=== PATIENT | female | born 1955 | race Caucasian/White ===

== ENCOUNTER → 2018-04-18 13:43 | Outpatient (CLI) | payer OTHER, SELFPAY ==
--- NOTE | 2018-04-18 | DI.US.S_ITS ---
PROCEDURE: US BREAST RT LIMITED COMPARISON: None. INDICATIONS: RIGHT BREAST PAIN FINDINGS: IMPRESSION: Dictated by: Radha Lee M.D. on 04/18/2018 at 14:54 Approved by: Radha Lee M.D. on 04/18/2018 at 14:55
--- NOTE | 2018-04-18 | DI.MG.S_ITS ---
BILATERAL DIGITAL DIAGNOSTIC MAMMOGRAM 3D/2D: 04/18/2018 CLINICAL: Right breast pain. Comparison is made to exams dated: 02/20/2017 mammogram, 01/27/2016 mammogram, and 12/24/2014 mammogram - [facility]. The tissue of both breasts is heterogeneously dense. This may lower the sensitivity of mammography. No significant masses, calcifications, or other findings are seen in either breast. IMPRESSION: INCOMPLETE: NEEDS ADDITIONAL IMAGING EVALUATION There is no mammographic abnormality seen in the right breast to correspond with the pain, however, targeted ultrasound of the right breast is recommended and will be performed immediately following this exam. This exam was interpreted at Station ID: [id number]. NOTE: For mammograms, a report in lay terms will be sent to the patient. Approximately 15% of breast malignancies will not be visualized mammographically. In the management of a palpable breast mass, a negative mammogram must not discourage biopsy of a clinically suspicious lesion. Electronically Signed By: Radha Lee M.D. lk/:04/18/2018 14:19:00 letter sent: Additional Imaging Needed ACR BI-RADS Category 0: Incomplete 3340F
== END ==
PROVIDERS: PCP Family Medicine; Visit Provider Nurse Practitioner Family
DX: R92.1 Mammographic calcification found on diagnostic imaging of breast (principal); N64.4 Mastodynia
CPT/HCPCS: 76642; 77066; G0279

== ENCOUNTER → 2020-02-18 15:26 | Outpatient (CLI) | payer MEDICARE, SELFPAY ==
--- NOTE | 2020-02-18 | DI.MRI.S_ITS ---
PROCEDURE: MR LUMBAR SPINE WO CON INDICATIONS: Lumbago with sciatica, left side TECHNIQUE: Noncontrast sagittal T1 spin echo and T2 fast echo, sagittal STIR, axial T1 and T2 fast spin echo through the lumbar spine. In cases with scoliosis, additional coronal T2 fast spin echo may be performed. COMPARISON: [facility], , L-SPINE WITHOUT CONTRAST, 08/21/2009, 13:11. FINDINGS: Image quality: Excellent. Alignment and Curvature: There is 57? levoscoliosis centered at L1-2. Findings are similar in extent to the study dated August 21, 2009. Bone Marrow: Marrow has a heterogeneous appearance suggesting some fatty replacement of the marrow. No acute vertebral body compression fractures. Spinal Cord: Conus medullaris terminates at the T12 level. Visualized cord demonstrates normal signal and size. Paraspinous Soft Tissues: No paravertebral masses. L1-L2: Right-sided intervertebral disc space narrowing with preservation of the left aspect of the intervertebral disc. Findings are unchanged from 30/12. No canal stenosis. No neural foraminal stenosis. L2-L3: Overall preservation of disc height. There is a small posterior focal high-intensity zone which is new when compared with the prior study. Mild bilateral neural foraminal stenosis. 4 mm left perineural cyst redemonstrated, unchanged. L3-L4: Intervertebral disc height is preserved. Broad-based disc bulge. No canal stenosis. Moderate facet and ligamentum flavum hypertrophy. Moderate left and mild right neural foraminal stenosis. Findings are similar to the prior study. L4-L5: Intervertebral disc height is preserved. No canal stenosis. Moderate facet and ligamentum flavum hypertrophy. Mild right and moderate left neural foraminal stenosis. The degree of left neural foraminal narrowing is increased when compared with the prior study. L5-S1: Disc height is preserved. No canal stenosis. Moderate facet and ligamentum flavum hypertrophy. Mild bilateral foraminal narrowing. Findings are unchanged. IMPRESSION: 1. Overall similar findings when compared with the prior MRI dated August 21, 2009, including severe scoliotic deformity. 2. 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 3. Increased L4-5 foraminal stenosis, now moderate in degree. Dictated by: Radha Lee M.D. on 02/19/2020 at 9:42 Approved by: Radha Lee M.D. on 02/19/2020 at 9:54
== END ==
PROVIDERS: PCP Family Medicine; Referring Provider Family Medicine; Visit Provider Family Medicine
DX: M54.42 Lumbago with sciatica, left side (principal); M41.115 Juvenile idiopathic scoliosis, thoracolumbar region; G89.29 Other chronic pain; M48.061 Spinal stenosis, lumbar region without neurogenic claudication
CPT/HCPCS: 72148

== ENCOUNTER → 2021-04-12 11:56 | Outpatient (CLI) | payer MEDICARE, SELFPAY ==
--- NOTE | 2021-04-12 | DI.MG.S_ITS ---
BILATERAL DIGITAL SCREENING MAMMOGRAM 3D/2D WITH CAD: 04/12/2021 CLINICAL: Routine screening. Family history of breast cancer. Comparison is made to exams dated: 04/18/2018 mammogram, 02/20/2017 mammogram, and 01/27/2016 mammogram - [facility]. The tissue of both breasts is heterogeneously dense. This may lower the sensitivity of mammography. Current study was also evaluated with a Computer Aided Detection (CAD) system. No significant masses, calcifications, or other findings are seen in either breast. There has been no significant interval change. IMPRESSION: NEGATIVE There is no mammographic evidence of malignancy. A 1 year screening mammogram is recommended. This exam was interpreted at Station ID: [id number]. NOTE: For mammograms, a report in lay terms will be sent to the patient. Approximately 15% of breast malignancies will not be visualized mammographically. In the management of a palpable breast mass, a negative mammogram must not discourage biopsy of a clinically suspicious lesion. Electronically Signed By: Marshall price/kar:04/12/2021 12:34:35 letter sent: Normal Exam ACR BI-RADS Category 1: Negative 3341F
== END ==
PROVIDERS: PCP Family Medicine; Referring Provider Family Medicine; Visit Provider Family Medicine
DX: Z12.31 Encounter for screening mammogram for malignant neoplasm of breast (principal); Z80.3 Family history of malignant neoplasm of breast
CPT/HCPCS: 77063; 77067

== ENCOUNTER → 2022-05-09 12:50 | Outpatient (CLI) | payer MEDICARE, SELFPAY ==
--- NOTE | 2022-05-09 | DI.MG.S_ITS ---
BILATERAL DIGITAL SCREENING MAMMOGRAM 3D/2D WITH CAD: 05/09/2022 CLINICAL: Routine screening. Family history of breast cancer. Comparison is made to exams dated: 04/12/2021 mammogram, 04/18/2018 mammogram, and 02/20/2017 mammogram - [facility]. Both breasts are heterogeneously dense, which may obscure small masses (category c / 51-75% glandular tissue). Current study was also evaluated with a Computer Aided Detection (CAD) system. No significant masses, calcifications, or other findings are seen in either breast. There has been no significant interval change. IMPRESSION: NEGATIVE There is no mammographic evidence of malignancy. A 1 year screening mammogram is recommended. Based on the Tyrer Cuzick model (a risk assessment model) the patient's lifetime risk is 9.3% and her 10 year risk is 5.2%. According to the ACR, ACS, and NCCN guidelines, an annual breast MRI exam along with mammogram is recommended if the patient's lifetime risk is 20% or greater. This exam was interpreted at Station ID: [id number]. NOTE: For mammograms, a report in lay terms will be sent to the patient. Approximately 15% of breast malignancies will not be visualized mammographically. In the management of a palpable breast mass, a negative mammogram must not discourage biopsy of a clinically suspicious lesion. Electronically Signed By: Marshall price/kar:05/09/2022 13:54:30 letter sent: Normal Exam ACR BI-RADS Category 1: Negative 3341F
== END ==
PROVIDERS: PCP Family Medicine; Referring Provider Family Medicine; Visit Provider Family Medicine
DX: Z12.31 Encounter for screening mammogram for malignant neoplasm of breast (principal); Z80.3 Family history of malignant neoplasm of breast
CPT/HCPCS: 77063; 77067

== ENCOUNTER → 2023-02-16 12:35 | Outpatient (CLI) | payer MEDICARE, SELFPAY ==
--- NOTE | 2023-02-16 | DI.RAD.S_ITS ---
Bone Density Report Name: JANAE PALUMBO Age: 67 Sex: Female Ethnicity: White Date of : 1955 Indication: osteopenia; Referring Provider: VIKKI MADDEN Study: Bone densitometry was performed. Exam Date: February 16, 2023 Accession number: [id number] Bone Density: Region BMD T-score Z-score Classification Femoral Neck (Left) 0.539 -2.8 -1.0 Osteoporosis Total Hip (Left) 0.652 -2.4 -0.9 Osteopenia Femoral Neck (Right) 0.567 -2.5 -0.8 Osteoporosis Total Hip (Right) 0.698 -2.0 -0.5 Osteopenia Total Hip Mean 0.675 -2.2 -0.7 Osteopenia Total Forearm (Left) 0.537 -0.8 1.2 Normal 1/3 Forearm (Left) 0.648 -0.8 1.3 Normal UD Forearm (Left) 0.424 -0.3 1.1 Normal World Health Organization criteria for BMD impression classify patients as: Normal (T-score at or above -1.0), Osteopenia (T-score between -1.0 and -2.5), or Osteoporosis (T-score at or below -2.5). 10-year Fracture Risk: FRAX not reported because: Some T-score for Spine Total or Hip Total or Femoral Neck at or below -2.5 Previous Exams: -- Region Exam Age BMD T-score BMD Change BMD Change Date g/cm2 vs Baseline vs Previous -- Total Hip(Left) 02/16/2023 67 0.652 -2.4 -0.111 (-14.6%)# -0.050 (-7.1%)# 02/18/2016 60 0.702 -2.0 -0.061 (-8.0%)* -0.008 (-1.1%) 03/18/2014 58 0.710 -1.9 -0.054 (-7.0%)* -0.012 (-1.7%) 12/16/2011 56 0.722 -1.8 -0.041 (-5.4%)* -0.045 (-5.9%)* 04/30/2009 53 0.767 -1.4 0.004 (0.5%) -0.013 (-1.7%) 02/16/2007 51 0.781 -1.3 0.017 (2.3%) 0.017 (2.3%) 04/01/2004 48 0.763 -1.5 Total Hip(Right) 02/16/2023 67 0.698 -2.0 -0.085 (-10.9%)# -0.079 (-10.2%)# 02/18/2016 60 0.777 -1.3 -0.006 (-0.8%) -0.014 (-1.8%) 03/18/2014 58 0.791 -1.2 0.008 (1.0%) -0.006 (-0.7%) 12/16/2011 56 0.797 -1.2 0.013 (1.7%) -0.029 (-3.5%)* 04/30/2009 53 0.826 -1.0 0.042 (5.4%)* -0.006 (-0.7%) 02/16/2007 51 0.832 -0.9 0.048 (6.1%)* 0.048 (6.1%)* 04/01/2004 48 0.784 -1.3 -- *Denotes significance at 95% confidence level, LSC for Total Hip = 0.027 g/cm2 # Denotes dissimilar scan types or analysis methods Impression: The patient has osteoporosis, based on the Left Femoral Neck T-score. No significant bone loss was observed. Discussion: INCREASED RISK OF FRACTURE. BONE DENSITY IS UNDESIRABLY LOW AT ONE OR MORE SKELETAL SITES, CONSISTENT WITH POSTMENOPAUSAL OSTEOPOROSIS. This patient's lowest T-score meets the World Health Organization's (WHO) criteria for osteoporosis at one or more sites (T-score -2.5 or below). In untreated patients, the risk of osteoporotic fracture increases approximately two-fold for each 1.0 SD decrease in T-score. Low bone density is not the only risk factor for fracture; also consider factors such as patient's age, frailty or poor health, risk of falling, risk of injury, previous osteoporotic fracture, family history of osteoporosis, cigarette smoking, low body weight, etc. Not everyone with low bone mineral density has osteoporosis; osteomalacia and other metabolic bone disorders should also be considered. Patients who have osteoporosis should be evaluated for specific diseases and conditions (secondary causes) that may cause or contribute to bone loss. The [place] [employer] Endocrinologists (AACE) and National Osteoporosis Foundation (NOF) recommend pharmacologic intervention for all postmenopausal women whose T-score is in this range. The patient should follow a healthful lifestyle (good nutrition with adequate calcium and vitamin D, and appropriate weight-bearing exercise). Follow-Up: Consider a repeat BMD and Vertebral Fracture Assessment (VFA) exam in 2 years or sooner if medically necessary, to reassess this patient's status. Reported by: JODI WILLAMS M.D. on 02/16/2023 1:04:00 PM.
== END ==
PROVIDERS: PCP Family Medicine; Referring Provider Family Medicine; Visit Provider Family Medicine
DX: M81.0 Age-related osteoporosis without current pathological fracture (principal)
CPT/HCPCS: 77080; 77081

== ENCOUNTER → 2023-05-10 12:59 | Outpatient (CLI) | payer MEDICARE, SELFPAY ==
--- NOTE | 2023-05-10 13:01 | DI.MG.S_ITS ---
BILATERAL DIGITAL SCREENING MAMMOGRAM 3D/2D WITH CAD: 05/10/2023 CLINICAL: Routine screening. Family history of breast cancer. Comparison is made to exams dated: 05/09/2022 mammogram, 04/12/2021 mammogram, and 04/18/2018 mammogram - [facility]. Both breasts are heterogeneously dense, which may obscure small masses (category c / 51-75% glandular tissue). Current study was also evaluated with a Computer Aided Detection (CAD) system. No significant masses, calcifications, or other findings are seen in either breast. There has been no significant interval change. IMPRESSION: NEGATIVE There is no mammographic evidence of malignancy. A 1 year screening mammogram is recommended. Based on the Tyrer Cuzick model (a risk assessment model) the patient's lifetime risk is 8.8% and her 10 year risk is 5.3%. According to the ACR, ACS, and NCCN guidelines, an annual breast MRI exam along with mammogram is recommended if the patient's lifetime risk is 20% or greater. This exam was interpreted at Station ID: [id number]. NOTE: For mammograms, a report in lay terms will be sent to the patient. Approximately 15% of breast malignancies will not be visualized mammographically. In the management of a palpable breast mass, a negative mammogram must not discourage biopsy of a clinically suspicious lesion. Electronically Signed By: Radha cortez/kar:05/10/2023 15:00:51 letter sent: Normal Exam ACR BI-RADS Category 1: Negative 3341F
== END ==
PROVIDERS: PCP Family Medicine; Referring Provider Family Medicine; Visit Provider Family Medicine
DX: Z12.31 Encounter for screening mammogram for malignant neoplasm of breast (principal); Z80.3 Family history of malignant neoplasm of breast; R92.333 Mammographic heterogeneous density, bilateral breasts
CPT/HCPCS: 77063; 77067

== ENCOUNTER 2024-04-09 06:48 | Day surgery (SDC) | payer MEDICARE, SELFPAY ==
--- NOTE | 2024-04-09 | PATH_ITS ---
[facility] Accession Number: [id number] No. of containers..01 Tissue . 01 Material submitted: . esophagus - Z-LINE . 01 Clinical history: . R/O LINTON'S . 01 Diagnosis: ESOPHAGUS, BIOPSY: Gastric cardia-type mucosa with focal mild reactive gastropathy. Squamous component not present for evaluation. Negative for intestinal metaplasia, dysplasia, and malignancy. MRV 04/12/2024 1435 Local . 01 Electronically signed: . Zahira Nielsen DO, Pathologist NPI- [id number] . 01 Gross description: . Received in formalin with two patient identifiers and Z-line biopsy, are four allen soft tissue fragments, 0.3-0.4 cm in greatest dimension, submitted in A1. ([id number]) /MRV 04/11/2024 1646 Local . 01 Pathologist provided ICD-10: K21.9 . 01 CPT . 558301 Specimen Comment: A courtesy copy of this report has been sent to [facility] Performed at: [address] [address], [place], [place] [id number] MD Lopez Machado MD Phone: [phone]
[2024-04-09 07:17] VITALS: BP 154/82; PULSE 56; RESP 16; TEMP 36.2; O2SAT 98
[2024-04-09] MEDS: SODIUM CHLORIDE 0.9% 1,000 ML 84 ML IV (07:29)
--- NOTE | 2024-04-09 08:32 | P.OP_ITS ---
Operative Date/Time/Diagnoses Date of procedure: 04/09/24 Time of procedure: 08:32 Pre-op diagnosis: GERD Procedure & Clinicians Same procedure as scheduled: Yes Surgeon: Doug Doss Operative Notes Findings: OPERATIVE / PROCEDURE NOTE Amara Diaz, 1955, 68,Female,CSN: [id number] 04/09/24 PRE-OP DIAGNOSIS: Severe intractable GERD and her brother had Ponce's. POST-OP DIAGNOSIS: Same + Per the EGD performed all the way to the 3rd portion of the duodenum: - Z-line was @ 33 cm from the superior incisors' level - with the Crurae being at 42 cm from the superior incisors' level. - SEVERE GERD stigmata noted + Large Hiatal Hernia noted with intrathoracic stomach, No changes suspicious of Ponce's - No gastritis - No peptic ulcer disease - No biliary reflux PROCEDURE(S): - EGD to the 3rd portion of the duodenum - 4 Quadrants biospies from the Z-line to r/o Ponce's SURGEON(S): Doug Doss M.D., F.A.C.S., F.I.C.S. TIME CLOCK REPAIRER(S): NONE. ANESTHESIA: MAC per Anaesthesia. SPECIMENS: 4 Quadrants biospies from the Z-line to r/o Ponce's. ESTIMATED BLOOD LOSS: Less then 0.5 ml. COMPLICATIONS: NONE. CONDITION / DISPOSITION: Stable, to PACU. OPERATIVE DESCRIPTION: After properly informed consent was signed by the patient, knowing all the risks, benefits, potential complications and possible alternatives of the procedure, having significant refractory GERD symptoms. The patient was properly identified. She was brought to the GI suite and after institution of general IV sedation in reverse Trendelenburg position, in the left lateral decubitus position, the EGD Olympus scope was placed into her mouth and under direct visualization was advanced. No reflux or laryngitis stigmata noted. The esophagus was intubated. Severe distal esophagitis. The Z- line was @ 33 cm from the superior incisors' level - with the Crurae being at 42 cm from the superior incisors' level. No GERD stigmata noted. A large hiatal hernia was identified with intrathoracic stomach. NO changes suspicious for Ponce esophagitis, but since her brother has it, four quadrants Z-line biopsies to r/o Ponce's were taken. The stomach was intubated. No gastritis was noted and no ulcers noted. No significant gastritis noted. No tumors, no growths, no peptic ulcer disease. The pylorus was intubated and the scope was advanced all the way to the third portion of the duodenum. No postpyloric abnormalities identified, including the ampulla and periampullary regions. The scope was retracted back into the stomach, retroflexed; again a v gunnar large paraesophageal hiatal hernia was identified with intrathoracic stomach. Documentary pictures of all the above and below relevant findings were taken. The stomach was decompressed; the scope was retracted out uneventfully. The patient tolerated the procedure well without any complications and was sent to PACU in stable condition. Continue PPIs, and we will plan to repair her large paraesophageal hiatal hernia Soon. Doug Doss MD, FACS, FICS
[2024-04-09 08:36] VITALS: BP 113/64; PULSE 53; RESP 17; TEMP 36.1; O2SAT 97
[2024-04-09 08:41] VITALS: BP 116/69; PULSE 56; RESP 13; O2SAT 96
[2024-04-09 08:48] VITALS: BP 138/77; PULSE 56; RESP 14; TEMP 36.4; O2SAT 96
[2024-04-09 08:51] VITALS: BP 153/80; PULSE 54; RESP 14; TEMP 36.4; O2SAT 99
--- NOTE | 2024-04-09 11:22 | P.HP_ITS ---
History of Present Illness History of Present Illness Date Patient Seen: 04/09/24 Time Patient Seen: 11:23 Chief complaint: SDC Narrative: H=She has GERD x 2 yrs, but her Brother has Ponce's, needs an EGD and Biopsies to r/o Ponce's. [facility] Surgical History (Updated 07/11/17 @ 06:16 by Conversion Provider) Status post breast biopsy Status post endometrial ablation History of nephrectomy Family History (Updated 08/08/16 @ 00:00 by Conversion Provider) Grandfather Heart disease Mother Age: 98 Heart disease Sister Age: 74 Rheumatoid arthritis Social History Smoking Status: Never smoker alcohol intake: never Meds Home Medications and Allergies Home Medications Medication Instructions Recorded Confirmed Type cholecalciferol (vitamin D3) 50 4,000 iu PO QDAY ##0 12/01/10 01/25/24 History mcg (2,000 unit) capsule (Vitamin D3) Fish Oil (#FISH OIL) 3,000 mg PO QDAY ##0 11/07/11 01/25/24 History hydrocortisone 2.5 % topical cream 1 lorne ND BID ##30 05/13/16 01/25/24 Rx with perineal applicator (Proctosol HC) [LORATIDINE] 10 mg PO ##0 06/10/16 01/25/24 History alendronate 70 mg tablet (Fosamax) 70 mg PO QWEEK #12 tabs 06/10/16 04/09/24 Rx calcium 315 mg (as 1 tab PO Q DAY ##0 09/22/16 01/25/24 History citrate)-vitamin D3 6.25 mcg (250 unit) tablet (Citracal + Vitamin D Maximum) zolpidem 10 mg tablet (Ambien) 10 mg PO HS PRN #20 tabs 11/07/16 01/25/24 Rx aspirin 81 mg tablet,delayed 81 mg PO DAILY 01/25/24 01/25/24 History release cyanocobalamin (vitamin B-12) 500 500 mcg PO DAILY 01/25/24 01/25/24 History mcg tablet folic acid 1 mg tablet 1 mg PO DAILY 01/25/24 01/25/24 History gabapentin 300 mg capsule 300 mg PO TID 01/25/24 01/25/24 History omeprazole 20 mg capsule,delayed 20 mg PO DAILY 01/25/24 01/25/24 History release Allergies Allergy/AdvReac Type Severity Reaction Status Date / Time prednisone Allergy Verified 04/09/24 07:16 Review of Systems Review of Systems ROS: Yes All systems reviewed with the patient and are negative except as otherwise documented Exam Vital Signs (past 8 hours): - 04/09/24 07:17 04/09/24 08:36 04/09/24 08:41 Temperature 97.2 F L 96.9 F L Pulse Rate 56 L 53 L 56 L Respiratory Rate 16 17 13 Blood Pressure 154/82 H 113/64 116/69 Pulse Oximetry 98 97 96 Oxygen Delivery Method Room Air Room Air Room Air 04/09/24 08:48 04/09/24 08:51 Temperature 97.6 F 97.6 F Pulse Rate 56 L 54 L Respiratory Rate 14 14 Blood Pressure 138/77 153/80 H Pulse Oximetry 96 99 Oxygen Delivery Method Room Air Room Air Oxygen Delivery Method Room Air Narrative Exam Narrative: Normal Abdominal Exam Assessment & Plan Assessment and plan (1) GERD (gastroesophageal reflux disease): Problem details: She has GERD x 2 yrs, but her Brother has Ponce's, needs an EGD and Biopsies to r/o Ponce's. Qualifiers: Esophagitis presence: esophagitis presence not specified Qualified Code(s): K21.9 - Gastro-esophageal reflux disease without esophagitis Status: Acute Time-Based Coding :: [TOTAL MINUTES] spent with patient and on the chart (including review of chart, obtaining history, exam, reviewing outside data, placing orders, documenting exam and treatment plan, and counseling patient) on [DATE]. [employer] Document charge(s): Yes
== END 2024-04-09 09:02 | disposition home or self-care (01) ==
PROVIDERS: Surgery; PCP Family Medicine; Referring Provider Surgery; Visit Provider Surgery
PROC: 0DJ08ZZ Inspection of Upper Intestinal Tract, Via Natural or Artificial Opening Endoscopic (ICD-10-PCS; CPT 43239; principal; 2024-04-09 07:45)
DX: K21.9 Gastro-esophageal reflux disease without esophagitis (principal); K44.9 Diaphragmatic hernia without obstruction or gangrene; Z90.5 Acquired absence of kidney; K31.9 Disease of stomach and duodenum, unspecified
CPT/HCPCS: 43239; J2704

== ENCOUNTER → 2024-05-15 13:38 | Outpatient (CLI) | payer MEDICARE, SELFPAY ==
--- NOTE | 2024-05-15 13:40 | DI.MG.S_ITS ---
MM screening mammo BI: 05/15/2024. BI-RADS: 2 CLINICAL: 68-year old female for bilateral screening mammogram. Tyrer-Cuzick lifetime risk of 4.6%. No personal or first-degree family history of breast cancer. Current reported family history of breast cancer: maternal aunt. The patient had a prior right breast biopsy. PRIOR EXAMS 05/10/2023, 05/09/2022, 04/12/2021, 04/18/2018, 02/20/2017, 01/27/2016, 12/24/2014. MAMMOGRAPHY TECHNIQUE: 2D and 3D (tomosynthesis) digital mammographic views obtained, with additional images as needed for full coverage. Current study was also evaluated with a Computer Aided Detection (CAD) system. DENSITY C. The breasts are heterogeneously dense, which may obscure small masses. MAMMOGRAPHY FINDINGS Right: Benign-appearing post-surgical changes noted on the right. No suspicious finding with benign findings noted. Left: No suspicious mass, asymmetry, microcalcification, or other abnormality seen. IMPRESSION: Right * No evidence of malignancy with benign findings. Left * No evidence of malignancy. RECOMMENDATIONS Bilateral * Annual screening mammography. OVERALL ASSESSMENT CATEGORY BI-RADS-2: Benign. The [employer] recommends annual screening mammography beginning at age 40 for women with average risk of breast cancer. ELECTRONICALLY SIGNED: Law Ibarra M.D. on 05/15/2024 at 02:10:01 PM Interpreting Station ID: [id number]
== END ==
LOC: MAMMO 13:40
PROVIDERS: PCP Family Medicine; Referring Provider Family Medicine; Visit Provider Family Medicine
DX: Z12.31 Encounter for screening mammogram for malignant neoplasm of breast (principal); Z80.3 Family history of malignant neoplasm of breast; R92.333 Mammographic heterogeneous density, bilateral breasts
CPT/HCPCS: 77063; 77067